=== PATIENT | female | born 1995 | race Caucasian/White ===

== ENCOUNTER 2021-05-22 16:58 | Emergency (ER) | payer MEDICAID ==
[~2021-05-22] VITALS: Ht 177.8 cm; Wt 109.1 kg
[2021-05-22] MEDS ORDERED: MIDAZolam 5mg/ml 2ml vial IM ONE (17:00)
[2021-05-22] MEDS ORDERED: diphenhydrAMINE 50 mg/ml inj IM ONE (17:00)
--- NOTE | 2021-05-22 17:10 | NUR ---
PT CAME TO ROOM COMPATIVE WITH 4 OFFICERS, PLACED IN RESTRAINTS PER DR KHANNA TO ADMIN MEDICATIONS.
[2021-05-22] MEDS ORDERED: ketamine 50 mg/ml 10ml vial IM ONE (17:20)
[2021-05-22] MEDS ORDERED: normal saline 1000ml 1,000 ML IV ONE ×3 (17:40→20:55)
[2021-05-22 17:52] LABS: BASOPHILS # (AUTO) 0.1 X10'3 (0-0.2); BASOPHILS % (AUTO) 0.7 % (0-1); EOSINOPHILS # (AUTO) 0.1 X10'3 (0-0.9); EOSINOPHILS % (AUTO) 0.6 % (0-6); HEMATOCRIT 48.2 % (35.0-45.0); HEMOGLOBIN 16.2 g/dl (12.0-16.0); LYMPHOCYTES # (AUTO) 3.3 X10'3 (1.1-4.8); LYMPHOCYTES % (AUTO) 18.9 % (21-51); MEAN CORPUSCULAR HEMOGLOBIN 29.9 PG (27.0-31.0); MEAN CORPUSCULAR HGB CONC 33.6 g/dL (33.0-36.5); MEAN CORPUSCULAR VOLUME 88.8 FL (78-98); MEAN PLATELET VOLUME 9.2 FL (7.4-10.4); MONOCYTES # (AUTO) 1.5 X10'3 (0-0.9); MONOCYTES % (AUTO) 8.8 % (2-12); NEUTROPHILS # (AUTO) 12.4 X10'3 (1.8-7.7); PLATELET COUNT 281 X10'3 (140-440); RED BLOOD COUNT 5.43 X10'6 (4.20-5.60); RED CELL DISTRIBUTION WIDTH 13.2 % (11.5-14.5); WHITE BLOOD COUNT 17.4 X10'3 (4.5-11.0)
[2021-05-22 18:02] VITALS: BP 142/96
[2021-05-22 18:05] LABS: HCG SERUM QL NEGATIVE
[2021-05-22 18:07] LABS: ALANINE AMINOTRANSFERASE 28 U/L (12-78); ALBUMIN 4.2 G/DL (3.4-5.0); ALBUMIN/GLOBULIN RATIO 1.2 (1.1-1.5); ALKALINE PHOSPHATASE 67 IU/L (46-116); ANION GAP 23 (8-16); ASPARTATE AMINO TRANSFERASE 24 U/L (10-37); BILIRUBIN,TOTAL 0.8 MG/DL (0.1-1.0); BLOOD UREA NITROGEN 7 MG/DL (7-18); BUN/CREATININE RATIO 4.3 (6.6-38.0); CHLORIDE 101 MMOL/L (99-107); CREATININE 1.61 MG/DL (0.40-0.90); GLUCOSE 192 MG/DL (70-104); MAGNESIUM 2.1 MG/DL (1.5-2.4); POTASSIUM 3.3 MMOL/L (3.5-5.1); SODIUM 140 MMOL/L (135-145); TOTAL CARBON DIOXIDE 15.9 MMOL/L (24-32); TOTAL PROTEIN 7.6 G/DL (6.4-8.2); eGFR 38 ML/MIN
[2021-05-22 18:08] LABS: ETHANOL < 0.010 GM/DL (0.0-0.010)
[2021-05-22] MEDS ORDERED: MIDAZolam 5mg/ml 2ml vial IV ONE (19:55)
[2021-05-22 20:41] LABS: ALBUMIN 3.9 G/DL (3.4-5.0); ANION GAP 14 (8-16); BLOOD UREA NITROGEN 6 MG/DL (7-18); BUN/CREATININE RATIO 6.8 (6.6-38.0); CALCIUM 8.1 MG/DL (8.5-10.1); CHLORIDE 108 MMOL/L (99-107); CREATININE 0.88 MG/DL (0.40-0.90); GLUCOSE 106 MG/DL (70-104); POTASSIUM 3.1 MMOL/L (3.5-5.1); SODIUM 142 MMOL/L (135-145); TOTAL CARBON DIOXIDE 20.4 MMOL/L (24-32); eGFR 77 ML/MIN
[2021-05-22 20:49] LABS: URINE AMPHETAMINE SCREEN NEGATIVE (Neg); URINE BARBITUATE SCREEN NEGATIVE (Neg); URINE BENZODIAZEPINES SCREEN POSITIVE (Neg); URINE CANNABINOID SCREEN POSITIVE (Neg); URINE COCAINE SCREEN NEGATIVE (Neg); URINE METHADONE SCREEN NEGATIVE (Neg); URINE OPIATE SCREEN NEGATIVE (Neg); URINE PHENCYCLIDINE SCREEN NEGATIVE (Neg)
[2021-05-22] MEDS ORDERED: NO HOME MEDS (23:43)
--- NOTE | 2021-05-23 04:58 | NUR ---
PATIENT'S PACKET WAS SENT TO [facility].
--- NOTE | 2021-05-23 07:28 | NUR ---
Patient is alert and oriented to person and place. She looks to be responding to internal stimuli. She speaks to the eather, she sings to people in the room who are not there. Patient denies any anti anxiety medication. Her saline lock is dc'd intact as patient was going to take it out herself. No sitter is available to observe this or other psych patients in the ED. Patient is cooperative with this RN at the moment.
[2021-05-23] MEDS ORDERED: haloperidol lactate 5mg/ml inj IM ONE (07:55)
[2021-05-23] MEDS ORDERED: diphenhydrAMINE 50 mg/ml inj IM ONE (07:55)
[2021-05-23] MEDS ORDERED: LORazepam 2 mg/ml vial IM ONE (07:55)
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
--- NOTE | 2021-05-23 08:25 | NUR ---
Patient is still active. W/D. Good color. Pulse 104. Resp 20. Patient refuses other vital signs. [employer] is here. Dr. Lancaster has now cleared patient for senior care.
== END 2021-05-23 08:30 ==
LOC: ER 16:58
DX: S80.02XA Contusion of left knee, initial encounter (principal); S80.01XA Contusion of right knee, initial encounter; S09.90XA Unspecified injury of head, initial encounter; S80.211A Abrasion, right knee, initial encounter; S80.212A Abrasion, left knee, initial encounter; R41.82 Altered mental status, unspecified; R45.1 Restlessness and agitation; X58.XXXA Exposure to other specified factors, initial encounter; Y93.89 Activity, other specified; Y92.89 Other specified places as the place of occurrence of the external cause; Y99.8 Other external cause status
CPT/HCPCS: 36415; 70450; 80048; 80053; 80305; 80320; 83735; 84443; 84703; 85025; 93005; 94799; 96361; 96372; 96374; 99291; J1200; J1630; J2060; J2250; J7030; 94760; 99285

== ENCOUNTER 2021-06-07 16:46 | Inpatient (IN) | payer MEDICAID ==
[~2021-06-07] VITALS: Ht 177.8 cm; Wt 116.7 kg
[~2021-06-07 16:46] MED LIST: NO HOME MEDS
[2021-06-07 18:11] LABS: BASOPHILS # (AUTO) 0.1 X10'3 (0-0.2); BASOPHILS % (AUTO) 0.7 % (0-1); EOSINOPHILS # (AUTO) 0.4 X10'3 (0-0.9); EOSINOPHILS % (AUTO) 3.9 % (0-6); HEMATOCRIT 45.4 % (35.0-45.0); HEMOGLOBIN 14.9 g/dl (12.0-16.0); LYMPHOCYTES # (AUTO) 2.5 X10'3 (1.1-4.8); LYMPHOCYTES % (AUTO) 27.1 % (21-51); MEAN CORPUSCULAR HEMOGLOBIN 29.8 PG (27.0-31.0); MEAN CORPUSCULAR HGB CONC 32.8 g/dL (33.0-36.5); MEAN CORPUSCULAR VOLUME 90.8 FL (78-98); MEAN PLATELET VOLUME 9.3 FL (7.4-10.4); MONOCYTES # (AUTO) 0.7 X10'3 (0-0.9); MONOCYTES % (AUTO) 7.1 % (2-12); NEUTROPHILS # (AUTO) 5.8 X10'3 (1.8-7.7); NEUTROPHILS % (AUTO) 61.2 % (42-75); PLATELET COUNT 230 X10'3 (140-440); RED CELL DISTRIBUTION WIDTH 14.1 % (11.5-14.5); WHITE BLOOD COUNT 9.4 X10'3 (4.5-11.0)
[2021-06-07 18:18] LABS: ALANINE AMINOTRANSFERASE 27 U/L (12-78); ALBUMIN 3.7 G/DL (3.4-5.0); ALBUMIN/GLOBULIN RATIO 1.3 (1.1-1.5); ALKALINE PHOSPHATASE 61 IU/L (46-116); ANION GAP 10 (8-16); ASPARTATE AMINO TRANSFERASE 12 U/L (10-37); BILIRUBIN,TOTAL 0.3 MG/DL (0.1-1.0); BLOOD UREA NITROGEN 4 MG/DL (7-18); BUN/CREATININE RATIO 5.1 (6.6-38.0); CALCIUM 8.4 MG/DL (8.5-10.1); CHLORIDE 111 MMOL/L (99-107); CREATININE 0.78 MG/DL (0.40-0.90); GLUCOSE 97 MG/DL (70-104); POTASSIUM 3.7 MMOL/L (3.5-5.1); SODIUM 144 MMOL/L (135-145); TOTAL CARBON DIOXIDE 22.6 MMOL/L (24-32); TOTAL PROTEIN 6.5 G/DL (6.4-8.2); eGFR 89 ML/MIN
[2021-06-07] MEDS ORDERED: acetaminophen 325mg tablet PO ONE (18:25)
[2021-06-07 18:28] LABS: URINE HCG NEGATIVE (NEG)
[2021-06-07 18:29] LABS: CLARITY,URINE CLEAR (Clear); COLOR,URINE YELLOW (Yellow); GLUCOSE, URINE NEGATIVE (Neg); KETONES,URINE NEGATIVE (Neg); LEUKOCYTE ESTERASE ,URINE NEGATIVE (Neg); NITRITES, URINE NEGATIVE (Neg); OCCULT BLOOD,URINE NEGATIVE (Neg); PH,URINE 5.5 (4.8-8.0); PROTEIN,URINE NEGATIVE (Neg); UROBILINOGEN,URINE 0.2 E.U/dL (0.2-1.0)
[2021-06-07 18:31] LABS: ETHANOL < 0.010 GM/DL (0.0-0.010)
[2021-06-07 18:34] LABS: UA COLLECTION TYPE CLN CATCH MIDSTREAM
[2021-06-07 18:39] LABS: URINE AMPHETAMINE SCREEN NEGATIVE (Neg); URINE BARBITUATE SCREEN NEGATIVE (Neg); URINE BENZODIAZEPINES SCREEN NEGATIVE (Neg); URINE CANNABINOID SCREEN POSITIVE (Neg); URINE COCAINE SCREEN NEGATIVE (Neg); URINE METHADONE SCREEN NEGATIVE (Neg); URINE OPIATE SCREEN NEGATIVE (Neg); URINE PHENCYCLIDINE SCREEN NEGATIVE (Neg)
--- NOTE | 2021-06-08 06:47 | NUR ---
Pt was brought over via gurney from main ED to bed #23. Pt appears to be calm, slightly anxious. Pt questioned why personal belongings, including her water bottle couldn't be kept at beside. Pt was reluctant, but was compliant. Pt was given a hospital water pitcher, which seemed to appease her.
[2021-06-08] MEDS ORDERED: QUET50TA24 PO (07:00)
[2021-06-08] MEDS ORDERED: LITH150C8 PO (07:00)
[2021-06-08] MEDS: lithium carbonate 150mg capsule PO SCH ×2 (08:08→19:39)
--- NOTE | 2021-06-08 09:23 | NUR ---
Pt sitting up in bed, no distress noted. Pt declined her AM [place] pt states "the reason I am here is because my [place] and Seroquel make me sick." Pt denies A/VH. Pt states "my mother called the waiter/waitress tourist class on me." "She made me take my meds yesterday together because she thought I was being psychotic." Pt denies suicidal thoughts at this time.
--- NOTE | 2021-06-08 10:42 | NUR ---
FAXED PACKET TO [facility].
--- NOTE | 2021-06-08 11:00 | NUR ---
Pt's mother called TERESA JACKSONXAVIER [phone]. She wants to speak with [facility] after pt is assessed. Pt lives with her and mother is unable to provide third green party assistance at this time.
--- NOTE | 2021-06-08 11:27 | NUR ---
Pt appears to be sleeping comfortably, respirations even and unlabored.
--- NOTE | 2021-06-08 13:33 | NUR ---
Pt was at bedside eating her lunch. Pt states she is a vegetarian, diet changed. Pt continues to be calm and cooperative. Pt laid back to rest after eating 75% of her meal.
--- NOTE | 2021-06-08 15:33 | NUR ---
Pt resting in bed with eyes open, blankets pulled up to her neck. Respirations even and unlabored.
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
--- NOTE | 2021-06-08 16:28 | NUR ---
Received notification from [facility] office - seeking placement for pt.
--- NOTE | 2021-06-08 17:45 | NUR ---
Pt on phone again talking to her mother. Pt telling her mother "you don't know me." Pt not yelling and is calm.
--- NOTE | 2021-06-08 19:40 | NUR ---
Pt's mother is at bedside, reading to patient. Pt appears calm. Pt was accepted to [facility], just waiting for bed to open. Pt refused her PM [place] "I told you it gives me a head ache and literally upsets my stomach."
[2021-06-08] MEDS: QUEtiapine 25mg tablet PO SCH (21:00)
--- NOTE | 2021-06-08 22:00 | NUR ---
Pt taken to [facility].
[2021-06-08 22:20] VITALS: BP 136/105
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
[2021-06-08] MEDS ORDERED: magnesium hydroxide 30ml (MOM) UD suspension PO PRN (23:40)
[2021-06-08] MEDS ORDERED: acetaminophen 325mg tablet PO PRN ×2 (23:40)
[2021-06-08] MEDS ORDERED: mag hydrox/Alum hydrox/simeth 30ml oral suspension PO PRN (23:40)
[2021-06-08] MEDS ORDERED: loperamide 2mg capsule PO PRN (23:40)
[2021-06-09 07:38] LABS: HEMOGLOBIN A1C 5.7 % (4.5-6.2)
[2021-06-09 07:53] LABS: CHOL/HDL RATIO 3.4 (0.00-4.99); CHOLESTEROL 200 MG/DL (0-200); HDL CHOLESTEROL 59 MG/DL (35-60); LDL CHOLESTEROL 111 MG/DL (50-100); TRIGLYCERIDES 109 MG/DL (20-135)
[2021-06-09 08:00] VITALS: BP 128/89
[2021-06-09] MEDS: lithium carbonate 150mg capsule PO SCH (08:00)
[2021-06-09] MEDS ORDERED: LORazepam 1 MG tablet PO PRN (08:20)
[2021-06-09] MEDS ORDERED: traZODone 50mg tablet PO PRN (08:20)
--- NOTE | 2021-06-09 14:13 | NUR ---
Pt. attended group today. The topic today was identifying the triggers, signs and symptoms of an upcoming episode/event so that Pts. can learn to apply coping skills before they get to a bad place with their symptoms. Pt came into group half was through the group. She was pleasant and her mood was upbeat. She was very vocal in the group and shared the different coping skills she utilizes to help her feel better. Her thought content and thought process was WNL. She was alert and oriented X 4. Her demeanor was pleasant and she got along with well with her peers. She was interested in the topic and it showed. She shared some of her story with the group. Cheyanne Hopkins LCSW
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
[2021-06-09 20:20] VITALS: BP 124/77
[2021-06-09] MEDS: QUEtiapine 25mg tablet PO SCH (21:00)
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
[2021-06-10 07:21] VITALS: BP 138/88
[2021-06-10] MEDS: lurasidone 20mg tablet PO SCH (08:15)
--- NOTE | 2021-06-10 10:07 | NUR ---
Pt. attended group today. We talking about developing coping skills. We mostly talked about grounding and this Desk Representative lead different grounding exercises such as 078 breathing techniques, 95194 grounding technique, and scaling emotional pain levels. Pts left with a repertoire of ideas for coping skills they can work on and practice. Pt was engaged in the group in the discussion and the activities. She appropriately shared about herself and what techniques she has used in the past. She tended to taking a teaching approach to others in the group. She was alert and oriented X 4. Her thought content and thought process was WNL. Cheyanne Hopkins LCSW
[2021-06-10] MEDS ORDERED: ibuprofen 200mg tablet PO PRN (13:50)
[2021-06-10] MEDS: multivitamins, therapeutics tablet PO SCH (14:15)
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
[2021-06-10 19:00] VITALS: BP 129/78
[2021-06-10] MEDS: QUEtiapine 25mg tablet PO SCH (21:00)
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
[2021-06-11 08:33] VITALS: BP 120/79
[2021-06-11] MEDS: lurasidone 20mg tablet PO SCH (09:03)
[2021-06-11] MEDS: multivitamins, therapeutics tablet PO SCH (09:03)
--- NOTE | 2021-06-11 12:09 | NUR ---
Scheduled Yolanda's follow up with Dr Barnhart and therapist, Tim Medina, at [facility]. XIOMARA Langley
--- NOTE | 2021-06-11 14:06 | NUR ---
Initial: Pt admit for bipolar disorder. Currently on a vegetarian diet with fluctuating PO intake though averaging 75% PO intake with 100% PO intake at two most recent meals. LBM 06/11. No edema or wounds per physical assessment. No nutrition diagnosis at this time. Will continue to follow. Recommendations: 1) Continue vegetarian diet 2) Continue routine MVI 3) Bowel care PRN 4) Weekly scaled weights Addendum: 06/11/21 at [address] Amended: Links added.
[2021-06-11] MEDS ORDERED: LURA40TA3 PO (16:03)
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
--- NOTE | 2021-06-11 17:25 | NUR ---
Patient Discharged @ 1724 Patient left on foot, her house is less than one mile. Patient denies S/I H/I, she is alert and oriented times 4 Patient agrees to discharge plan and states she will stay on her medication. Patient believes that she can benefit from follow up care.
== END 2021-06-11 17:24 | disposition home or self-care (01) | DRG 753 ==
LOC: ER 16:47 → ADULT MH 06-08 17:00
PROVIDERS: ADMIT Psychiatry & Neurology Psychiatry; ATTEND Psychiatry & Neurology Psychiatry
DX: F31.2 Bipolar disorder, current episode manic severe with psychotic features (principal); R45.851 Suicidal ideations; F41.9 Anxiety disorder, unspecified; Z20.822 Contact with and (suspected) exposure to COVID-19; F17.210 Nicotine dependence, cigarettes, uncomplicated; Z79.899 Other long term (current) drug therapy; Z91.5 Personal history of self-harm; Z91.410 Personal history of adult physical and sexual abuse; Z82.49 Family history of ischemic heart disease and other diseases of the circulatory system; Z83.3 Family history of diabetes mellitus; Z71.6 Tobacco abuse counseling; Z82.3 Family history of stroke; Z81.4 Family history of other substance abuse and dependence; Z56.0 Unemployment, unspecified
CPT/HCPCS: 36415; 80053; 80061; 80178; 80305; 80320; 81003; 81025; 83036; 84443; 85025; 87081; 87635; 99285; C9803